=== PATIENT | male | born 1995 | race Two or more races ===

== ENCOUNTER 2021-01-26 08:45 | Emergency (ER) | payer OTHER ==
[2021-01-26 08:58] VITALS: BP 123/73; PULSE 97; TEMP 97.9; BMI 34.4
[2021-01-26 11:00] LABS: URINE APPEARANCE TURBID; URINE BILIRUBIN NEGATIVE (NEGATIVE); URINE COLOR YELLOW; URINE GLUCOSE (UA) NEGATIVE (NEGATIVE); URINE KETONE NEGATIVE (NEGATIVE); URINE LEUK ESTERASE NEGATIVE (NEGATIVE); URINE NITRITE NEGATIVE (NEGATIVE); URINE PROTEIN NEGATIVE (NEGATIVE); URINE UROBILINOGEN 0.2 mg/dL (0.2-1.0)
== END 2021-01-26 12:53 | disposition home or self-care (01) ==
LOC: JER 08:45
DX: R10.31 Right lower quadrant pain (principal)
CPT/HCPCS: 36415; 76856-TC; 76870-TC; 81003; 87086; 87491; 87591; 99284-25